=== PATIENT | female | born 1955 | race Asian ===

== ENCOUNTER 2017-04-03 18:26 | Emergency (ER) | payer OTHER ==
[~2017-04-03] VITALS: Ht 154.9 cm; Wt 45.5 kg
[~2017-04-03 18:26] MED LIST: OMEP20CA10 PO
[2017-04-03 19:17] VITALS: BP 145/76
[2017-04-03] MEDS ORDERED: BENZONATATE 100 MG CAPSULE PO ONE (20:30)
== END 2017-04-03 21:24 | disposition home or self-care (01) ==
LOC: EMS 18:31
DX: J04.0 Acute laryngitis (principal); J40 Bronchitis, not specified as acute or chronic; Z88.1 Allergy status to other antibiotic agents
CPT/HCPCS: 99283

== ENCOUNTER 2017-11-05 11:11 | Emergency (ER) | payer OTHER ==
[~2017-11-05] VITALS: Ht 154.9 cm; Wt 48.6 kg
[2017-11-05 11:21] VITALS: BP 130/78
[2017-11-05 12:55] LABS: INFLUENZA TYPE A POSITIVE FOR TYPE A (NEGATIVE); INFLUENZA TYPE B NEGATIVE FOR TYPE B (NEGATIVE)
== END 2017-11-05 16:34 | disposition left against medical advice (07) ==
LOC: EMS 11:15
DX: R05 Cough (principal); Z53.21 Procedure and treatment not carried out due to patient leaving prior to being seen by health care provider
CPT/HCPCS: 71046; 87804

== ENCOUNTER 2017-11-07 10:48 | Emergency (ER) | payer OTHER ==
[~2017-11-07] VITALS: Ht 154.9 cm; Wt 50.0 kg
[2017-11-07] MEDS ORDERED: DOXY1TAB2 PO (10:54)
[2017-11-07] MEDS ORDERED: D ME PO (10:54)
[2017-11-07 12:28] VITALS: BP 138/80
[2017-11-07] MEDS ORDERED: GuaiFENesin/D-METHORPHAN [SUGAR-FREE] 200-20MG/10 ML SYRUP UDCUP PO ONE (12:45)
[2017-11-07] MEDS ORDERED: ACETAMINOPHEN 325 MG TABLET PO ONE (12:45)
[2017-11-07] MEDS ORDERED: OSELTAMIVIR PHOSPHATE 75 MG CAPSULE PO ONE (12:45)
[2017-11-07 13:55] LABS: INFLUENZA TYPE A NEGATIVE FOR TYPE A (NEGATIVE); INFLUENZA TYPE B NEGATIVE FOR TYPE B (NEGATIVE)
== END 2017-11-07 13:32 | disposition home or self-care (01) ==
LOC: EMS 10:49
DX: J11.1 Influenza due to unidentified influenza virus with other respiratory manifestations (principal); Z88.1 Allergy status to other antibiotic agents; Z79.899 Other long term (current) drug therapy
CPT/HCPCS: 87804; 99284

== ENCOUNTER 2019-06-21 12:35 | Emergency (ER) | payer OTHER ==
[~2019-06-21] VITALS: Ht 154.9 cm; Wt 47.7 kg
[~2019-06-21 12:35] MED LIST changes: +D ME PO; +DOXY1TAB2 PO; +OMEP-50 PO; -OMEP20CA10 PO
[2019-06-21 14:17] LABS: BASOPHILS % (AUTO) 0.4 % (0.0-2.0); HEMATOCRIT 36.2 % (36-46); HEMOGLOBIN 11.4 g/dL (12.0-16.0); LYMPHOCYTES # (AUTO) 1.6 K/uL (1.0-4.8); LYMPHOCYTES % (AUTO) 25.1 % (22.0-44.0); MEAN CORPUSCULAR HEMOGLOBIN 31.9 pg (26.0-34.0); MEAN CORPUSCULAR HGB CONC 31.5 G/dL (31.0-37.0); MEAN CORPUSCULAR VOLUME 101 fL (80-100); MONOCYTES # (AUTO) 0.4 K/uL (0.1-1.0); MONOCYTES % (AUTO) 5.9 % (2.0-9.0); NEUTROPHILS # (AUTO) 4.2 K/uL (1.8-7.7); NEUTROPHILS % (AUTO) 67.6 % (40.0-70.0); PLATELET COUNT (AUTO) 155 K/uL (150-450); RED BLOOD CELL COUNT(AUTO) 3.58 MIL/uL (4.00-5.20); RED CELL DISTRIBUTION WIDTH 15.1 % (11.5-14.5)
[2019-06-21 14:30] LABS: INR 0.9 (0.9-1.1); PROTHROMBIN TIME 9.6 SEC (9.4-11.6)
[2019-06-21 14:32] LABS: ALANINE AMINOTRANSFERASE 17 U/L (12-78); ALBUMIN 4.2 g/dL (3.4-5.0); ALKALINE PHOSPHATASE 76 U/L (46-116); ANION GAP 10 mmol/L (8-16); ASPARTATE AMINOTRANSFERASE 20 U/L (15-37); CARBON DIOXIDE 24 mmol/L (22-29); CHLORIDE 105 mmol/L (98-107); CREATININE 0.87 mg/dL (0.60-1.30); GLOMERULAR FILTR. RATE CALC > 60 mL/min (>60); GLUCOSE,RANDOM 89 mg/dL (70-110); SODIUM SERUM 139 mmol/L (136-145); TOTAL PROTEIN, SERUM 7.2 g/dL (6.4-8.2); UREA NITROGEN, BLOOD 12 mg/dL (7-18)
[2019-06-21 14:34] LABS: POTASSIUM 2.9 mmol/L (3.5-5.1)
[2019-06-21] MEDS ORDERED: POTASSIUM CHLORIDE 20 MEQ ER TABLET PO ONE (15:15)
[2019-06-21 15:43] VITALS: BP 139/80
== END 2019-06-21 15:47 | disposition home or self-care (01) ==
LOC: EMS 12:37
DX: K92.2 Gastrointestinal hemorrhage, unspecified (principal); E87.6 Hypokalemia; K21.9 Gastro-esophageal reflux disease without esophagitis; Z85.3 Personal history of malignant neoplasm of breast; Z98.890 Other specified postprocedural states; Z79.899 Other long term (current) drug therapy; Z88.1 Allergy status to other antibiotic agents

== ENCOUNTER 2020-05-08 16:37 | Emergency (ER) | payer OTHER ==
[~2020-05-08] VITALS: Ht 154.9 cm; Wt 45.5 kg
[~2020-05-08 16:37] MED LIST changes: -D ME PO; -DOXY1TAB2 PO; -OMEP-50 PO; +OMEP20CA12 PO
[2020-05-08] MEDS ORDERED: LIDOCAINE 1% 10 ML VIAL INJ ONE (20:00)
[2020-05-08] MEDS ORDERED: POVIDONE-IODINE 10% 15 ML SOLUTION UD TP ONE (20:00)
[2020-05-08] MEDS ORDERED: TraMADol HCL 50 MG TABLET PO ONE (20:30)
[2020-05-08 21:00] VITALS: BP 133/71
== END 2020-05-08 21:34 | disposition home or self-care (01) ==
LOC: EMS 16:42
DX: N76.4 Abscess of vulva (principal); Z88.1 Allergy status to other antibiotic agents
CPT/HCPCS: 56405; 99284; J3490

== ENCOUNTER 2025-07-09 13:27 | Emergency (ER) | payer MEDICARE, OTHER ==
[~2025-07-09] VITALS: Ht 154.9 cm; Wt 43.2 kg
[2025-07-09 14:04] LABS: COVID AG,FIA SOURCE NASAL SWAB
[2025-07-09 14:25] LABS: SARS-COV2 (COVID) ANTIGEN,FIA Negative (Negative)
[2025-07-09 14:29] LABS: INFLUENZA TYPE A NEGATIVE FOR TYPE A (NEGATIVE); INFLUENZA TYPE B NEGATIVE FOR TYPE B (NEGATIVE)
[2025-07-09] MEDS ORDERED: AZIT-164 PO (14:42)
[2025-07-09] MEDS: AZITHROMYCIN 500 MG TABLET PO ONE (15:00)
[2025-07-09 15:08] VITALS: BP 140/68; PULSE 72; RESP 18; TEMP 97.9; O2SAT 99
== END 2025-07-09 15:42 | disposition home or self-care (01) ==
LOC: EMS 13:27
DX: J18.9 Pneumonia, unspecified organism (principal); R05.9 Cough, unspecified; K21.9 Gastro-esophageal reflux disease without esophagitis; Z90.10 Acquired absence of unspecified breast and nipple; Z88.1 Allergy status to other antibiotic agents; Z85.3 Personal history of malignant neoplasm of breast; Z20.822 Contact with and (suspected) exposure to COVID-19; Z88.5 Allergy status to narcotic agent; Z98.890 Other specified postprocedural states
CPT/HCPCS: 99284; 71045; 87426; 87804; J0456